=== PATIENT | male | born 1965 | race Asian ===

== ENCOUNTER 2020-10-09 09:37 | Day surgery (SDC) | payer OTHER, SELFPAY ==
[~2020-10-09] VITALS: Ht 172.7 cm; Wt 68.0 kg
[2020-10-09] MEDS ORDERED: diphenhydrAMINE 50 MG/ML VIAL ONE (11:16)
[2020-10-09] MEDS ORDERED: fentaNYL citrate 0.05 MG/ML VIAL ONE (11:16)
[2020-10-09] MEDS ORDERED: MIDAZOLAM 5 MG/5 ML VIAL ONE (11:16)
[2020-10-09] MEDS: MIDAZOLAM 2 MG/2 ML VIAL IVP ONE (11:20)
[2020-10-09] MEDS: fentaNYL citrate 0.05 MG/ML VIAL IVP ONE (11:21)
[2020-10-09] MEDS: diphenhydrAMINE 50 MG/ML VIAL IVP ONE (11:22)
[2020-10-09] MEDS: LIDOCAINE 2% 100 MG/5 ML UJET TP ONE (11:22)
== END 2020-10-09 12:30 | disposition home or self-care (01) ==
LOC: MMU 09:37 → MDS 09:37
PROVIDERS: ATTEND Internal Medicine Gastroenterology
DX: Z12.11 Encounter for screening for malignant neoplasm of colon (principal); D12.2 Benign neoplasm of ascending colon; D12.3 Benign neoplasm of transverse colon; D12.0 Benign neoplasm of cecum; E11.9 Type 2 diabetes mellitus without complications; I48.91 Unspecified atrial fibrillation; Z79.01 Long term (current) use of anticoagulants; Z79.84 Long term (current) use of oral hypoglycemic drugs; Z79.899 Other long term (current) drug therapy; E78.5 Hyperlipidemia, unspecified; Z86.73 Personal history of transient ischemic attack (TIA), and cerebral infarction without residual deficits
CPT/HCPCS: 45385; 87426; 88305; J1200; J2250; J3010